=== PATIENT | female | born 1980 | race Caucasian/White ===

== ENCOUNTER 2023-11-13 12:06 | Emergency (ER) | payer OTHER ==
[~2023-11-13] VITALS: Ht 167.6 cm; Wt 84.9 kg
[~2023-11-13 12:06] MED LIST: PHENDIMETRAZIN105 MG PO
[2023-11-13] MEDS ORDERED: DIPHTH,PERTUSS(ACELL),TET VAC 0.5 ML SYRINGE IM ONE (12:45)
[2023-11-13] MEDS ORDERED: CEPHALEXIN500 MG PO (13:38)
[2023-11-13 13:44] VITALS: BP 130/76
== END 2023-11-13 13:44 | disposition home or self-care (01) ==
LOC: ED 12:06
DX: S61.412A Laceration without foreign body of left hand, initial encounter (principal); X58.XXXA Exposure to other specified factors, initial encounter; F17.200 Nicotine dependence, unspecified, uncomplicated; Z23 Encounter for immunization
CPT/HCPCS: 90471; 90715; 99282-25